=== PATIENT | male | born 2000 | race Caucasian/White ===

== ENCOUNTER 2021-12-18 01:29 | Emergency (ER) | payer MEDICAID ==
[~2021-12-18] VITALS: Ht 188 cm; Wt 77.1 kg
[2021-12-18 01:53] VITALS: BP 144/87
--- NOTE | 2021-12-18 01:53 | NUR ---
BIB FAMILY FOR C/O ANXIETY AND PALPITATION AFTER SMOKING MARIJUANA. PT ALERT AND ORIENTED X4 BREATHING IS EVEN AND UNLABORED. PT PLACED ON MONITOR AND ALL V/S STABLE.
[2021-12-18] MEDS ORDERED: LORAZEPAM 1 MG TABLET ONE (02:00)
[2021-12-18] MEDS ORDERED: LORAZEPAM 1 MG TABLET PO ONE (02:00)
[2021-12-18] MEDS ORDERED: ANESTHESIA TRAY IN PYXIS 1 EA TRAY MC ONE (15:53)
== END 2021-12-18 02:27 | disposition home or self-care (01) ==
LOC: ER 01:37
DX: F41.9 Anxiety disorder, unspecified (principal); F17.200 Nicotine dependence, unspecified, uncomplicated